=== PATIENT | female | born 1955 | race Caucasian/White ===

== ENCOUNTER 2021-02-03 10:42 | Day surgery (SDC) | payer BC ==
--- NOTE | 2021-02-03 08:26 | HP ---
DATE OF SURGERY: 02/03/2021 HISTORY OF PRESENT ILLNESS: The patient is a 65 year-old for the last two years had a cyst on the arm. She has seen Dr. Eisenberg in the past. She had been on some antibiotics. On ultrasound increased in size. Infected, ruptured cyst left axilla. I feel she would benefit from excision and biopsy at this point. PAST MEDICAL HISTORY: Diabetes. 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 PAST SURGICAL HISTORY: Left knee replaced. section. Cholecystectomy. MEDICATIONS: Aspirin, atorvastatin, been on some Bactrim and then later some doxycycline, clopidogrel, diclofenac, epinastine eye drops, fluticasone, gabapentin, Glipizide, hydrochlorothiazide, Lantus, lisinopril, metformin, metoprolol, Nitrostat, oxybutynin, ProAir HFA, tizanidine, Victoza, zolpidem. ALLERGIES: SULFA. CODEINE. FAMILY HISTORY: Diabetes, cancer. SOCIAL HISTORY: Denies smoking. REVIEW OF SYSTEMS: Fourteen systems reviewed. No chest pain or palpitations currently. Other systems pertinent for multiple medical problems as noted above. PHYSICAL EXAMINATION: GENERAL: No acute distress. HEENT: Sclerae nonicteric. NECK: No JVD. CHEST: Equal excursion, nonlabored breathing. CVS: Regular rate and rhythm. ABDOMEN: Soft. EXTREMITIES: No significant edema. In the left axilla there is a ruptured cyst site. NEURO: Alert, moving extremities symmetrically. PSYCH: Appropriate mood and affect. IMPRESSION: Infected cyst site left axilla. I feel the patient would benefit from excision and biopsy. Risks and benefits explained in detail including but not limited to bleeding or infection, risk of wound dehiscence possibly requiring packing, possibility there is enough infection at the time of surgery that may require some packing strips at the time of surgery. Risk of dehiscence later if fails to close. General risk of aches, pains, burning, numbness possible detention or chronic in nature, remote risk of lymphedema. General risk of anesthesia, deep vein thrombosis, pulmonary embolism, pneumonia. 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 She understands what we excise once she heals the wound will not recur but she could get similar cyst adjacent to or elsewhere on her body. The patient agrees to the planned procedure, will proceed with excisional biopsy of ruptured cyst site left axilla as an outpatient.
[~2021-02-03 10:42] MED LIST: Lactated Ringers 1,000 ML IV ONE; Lactated Ringers 1,000 ML IV SCH; MEFOXIN 2 GM PREMIX** 2 GM/50 ML ML IV ONE; Sensorcaine 0.25% 10 ML ONE
[2021-02-03] MEDS ORDERED: CEFAZOLIN 2 GM-D5W BAG** 2 GM/50 ML ML IV ONE (10:43)
[2021-02-03] MEDS ORDERED: CEFAZOLIN 2 GM-D5W BAG** 2 GM/50 ML ML IV SCH (11:00)
[2021-02-03] MEDS ORDERED: Decadron 4 MG INJ ONE (12:32)
[2021-02-03] MEDS ORDERED: Versed 2 MG/2 ML Injection ONE (12:32)
[2021-02-03] MEDS ORDERED: Xylocaine-Mpf 2% 5 Ml Vial ONE (12:32)
[2021-02-03] MEDS ORDERED: DIPRIVAN 200 MG/20 ML IV ONE (12:32)
[2021-02-03] MEDS ORDERED: SUBLIMAZE 100 MCG/2 ML ONE (12:32)
[2021-02-03] MEDS ORDERED: Zofran 4 MG/2 ML VIAL ONE (12:32)
[2021-02-03] MEDS ORDERED: TORAdol 30 mg Injection ONE (12:34)
[2021-02-03 14:54] VITALS: BP 130/77; PULSE 92; O2SAT 94
--- NOTE | 2021-02-04 08:21 | OP ---
SURGERY DATE/TIME: 02/03/2021 1301 PREOPERATIVE DIAGNOSIS: Persistent infected, ruptured cyst site left axilla/upper arm area. POSTOPERATIVE DIAGNOSIS: Persistent infected, ruptured cyst site left axilla/upper arm area. PROCEDURE: Excisional biopsy ruptured cyst site left axilla/upper arm area (approximately 2.5 cm with margins). SURGEON: Dr. Augusto Altamirano. ANESTHESIA: General. ESTIMATED BLOOD LOSS: Minimal. INDICATIONS: As noted above. Risks and benefits explained in detail and not limited to and consent obtained. The site was marked in the preoperative holding area. DESCRIPTION OF PROCEDURE AND FINDINGS: The patient is taken to the operating room. General anesthesia introduced. Her shoulder prepped and draped in usual sterile fashion. After official time out and no disagreement with planned procedure, marking out in spindle-shaped excision pattern around, dissection carried deep down to what appeared to be a ruptured inclusion-type cyst. Dissecting down around this to normal appearing subcutaneous tissue beneath. It measured about 2.5 cm with the cyst and the surrounding inflammatory reaction. The wound is irrigated out. There is no evidence of any cyst material remaining in the wound. It was felt since the cyst had ruptured, it was felt it had been washed out well and clean enough to warrant primary closure. It was closed with interrupted 3-0 Vicryl in deep and superficial subcu. Skin closed with 4-0 Vicryl and some Dermabond. Once the Dermabond dried sterile dressing and pressure dressing applied. The patient tolerated the procedure well. Findings discussed with the family out in the waiting area. 0.25% Marcaine local had been injected along the wound area. The patient is transferred to the recovery room in stable condition.
== END 2021-02-03 15:15 | disposition home or self-care (01) ==
LOC: SDC 10:42
PROVIDERS: ATTEND Surgery
DX: L72.0 Epidermal cyst (principal); E11.9 Type 2 diabetes mellitus without complications; Z79.899 Other long term (current) drug therapy
CPT/HCPCS: 82947; J0690; J0694; J1100; J1885; J2250; J2405; J2704; J3010